=== PATIENT | male | born 1975 | race Two or more races ===

== ENCOUNTER 2019-09-10 10:33 | Emergency (ER) | payer MEDICAID ==
[~2019-09-10] VITALS: Ht 170.2 cm; Wt 75.0 kg
[2019-09-10] MEDS ORDERED: FOLIC ACID 1 MG, THIAMINE HCL 100 MG, MVI, ADULT NO.1 10 ML in DEXTROSE 5% WATER 1,000 ML IV ONE ×4 (11:15)
[2019-09-10 11:57] LABS: BASOPHILS % 1.5 % (0.0-2.0); HEMATOCRIT. 50.3 % (42.0-52.0); HEMOGLOBIN. 17.8 g/dL (14.0-18.0); LYMPHOCYTES % 28.2 % (20.0-50.0); MEAN CORPUSCULAR HEMOGLOBIN 30.9 pg (28.0-32.0); MEAN CORPUSCULAR VOLUME 87.4 fL (80.0-94.0); MEAN PLATELET VOLUME 6.9 fl (7.4-10.4); MONOCYTES % 7.6 % (2.0-8.0); NEUTROPHILS % 61.7 % (40.0-76.0); PLATELET 380 x1000/uL (130-400); RED BLOOD CELL COUNT 5.75 mill/uL (4.7-6.1); RED CELL DISTRIBUTION WIDTH 14.9 % (11.6-14.6)
[2019-09-10 12:05] LABS: CHLORIDE 103 mEq/L (98-107)
[2019-09-10 12:16] LABS: ETHANOL BLOOD 512 mg/dL
[2019-09-10 14:37] LABS: *BENZODIAZEPINES SCREEN URINE NEGATIVE (NEGATIVE); *COCAINE SCREEN URINE NEGATIVE (NEGATIVE); METHADONE URINE SCREEN NEGATIVE (NEGATIVE); OPIATES URINE SCREEN NEGATIVE (NEGATIVE); PHENCYCLIDINE URINE SCREEN NEGATIVE (NEGATIVE)
[2019-09-10 14:38] LABS: *AMPHETAMINES SCREEN URINE PRESUMTIVE POSITIVE (NEGATIVE); *BARBITURATES SCREEN URINE NEGATIVE (NEGATIVE); CANNABINOID URINE SCREEN NEGATIVE (NEGATIVE)
[2019-09-11 05:14] VITALS: BP 109/75
== END 2019-09-11 07:03 | disposition home or self-care (01) ==
LOC: ER 10:33 → EDBD 10:33 → ER 09-11 07:03
DX: F10.229 Alcohol dependence with intoxication, unspecified (principal); F15.10 Other stimulant abuse, uncomplicated; R00.0 Tachycardia, unspecified; Y90.8 Blood alcohol level of 240 mg/100 ml or more
CPT/HCPCS: 36415; 70450; 71045; 80053; 80305; 80320; 85025; 93005; 96365; 99285; J3411; J3490; J7070; G0480

== ENCOUNTER 2021-09-20 10:43 | Emergency (ER) | payer MEDICAID ==
[~2021-09-20] VITALS: Ht 167.6 cm; Wt 68.0 kg
[2021-09-20] MEDS ORDERED: SODIUM CHLORIDE 0.9% 1,000 ML IV ONE ×2 (11:00→13:30)
[2021-09-20 11:54] LABS: CHLORIDE 91 mEq/L (98-107)
[2021-09-20 12:02] LABS: ETHANOL BLOOD < 10 mg/dL
[2021-09-20 12:09] LABS: BASOPHILS % 0.6 % (0.0-2.0); EOSINOPHILS % 0.4 % (0.0-5.0); HEMOGLOBIN. 11.6 g/dL (14.0-18.0); LYMPHOCYTES % 10.7 % (20.0-50.0); MEAN CORPUSCULAR HEMOGLOBIN 32.1 pg (28.0-32.0); MEAN CORPUSCULAR VOLUME 88.7 fL (80.0-94.0); MEAN PLATELET VOLUME 7.9 fl (7.4-10.4); MONOCYTES % 5.3 % (2.0-8.0); PLATELET 268 x1000/uL (130-400); RED CELL DISTRIBUTION WIDTH 13.3 % (11.6-14.6)
[2021-09-20 13:29] VITALS: BP 114/73
[2021-09-20] MEDS ORDERED: ONDANSETRON HCL 4MG/2ML INJ IV ONE (13:30)
[2021-09-20] MEDS ORDERED: ONDA4TAB5 MT (15:04)
== END 2021-09-20 15:32 | disposition home or self-care (01) ==
LOC: ER 10:43
DX: K22.6 Gastro-esophageal laceration-hemorrhage syndrome (principal); R10.84 Generalized abdominal pain; R11.2 Nausea with vomiting, unspecified; G40.909 Epilepsy, unspecified, not intractable, without status epilepticus; F10.21 Alcohol dependence, in remission
CPT/HCPCS: 36415; 74176; 80053; 80320; 84484; 85025; 86850; 86900; 86901; 93005; 96361; 96374; 99284; J2405; J7030; G0480

== ENCOUNTER 2024-07-02 10:41 | Emergency (ER) | payer MEDICAID, OTHER ==
[~2024-07-02] VITALS: Ht 175.3 cm; Wt 78.0 kg
[~2024-07-02 10:41] MED LIST: FOLI-43 MT; ONDA4TAB5 MT; THIA50TA12 MT
[2024-07-02 10:44] VITALS: BP 103/76; PULSE 71; RESP 18; TEMP 36.9; O2SAT 99
== END 2024-07-02 11:17 | disposition home or self-care (01) ==
LOC: ER 10:41
DX: F10.129 Alcohol abuse with intoxication, unspecified (principal); Z79.899 Other long term (current) drug therapy; Y90.9 Presence of alcohol in blood, level not specified
CPT/HCPCS: 82962; 99283

== ENCOUNTER 2024-09-16 14:45 | Emergency (ER) | payer MEDICAID ==
[~2024-09-16] VITALS: Ht 154.9 cm; Wt 55.0 kg
[2024-09-16 14:48] VITALS: O2SAT 98
[2024-09-16 17:41] VITALS: BP 121/74; PULSE 83; RESP 16; TEMP 36.5; O2SAT 100
== END 2024-09-16 17:46 | disposition home or self-care (01) ==
LOC: ER 14:45
DX: S82.492A Other fracture of shaft of left fibula, initial encounter for closed fracture (principal); Z98.890 Other specified postprocedural states; Z86.59 Personal history of other mental and behavioral disorders; V48.2XXA Person on outside of car injured in noncollision transport accident in nontraffic accident, initial encounter; Y93.89 Activity, other specified; Y92.512 Supermarket, store or market as the place of occurrence of the external cause; Y99.8 Other external cause status
CPT/HCPCS: 29505; 73562; 73590; 73610; 99284

== ENCOUNTER 2024-09-26 19:52 | Emergency (ER) | payer MEDICAID ==
[~2024-09-26] VITALS: Ht 172.7 cm; Wt 78.0 kg
[2024-09-26 19:56] VITALS: BP 136/80; PULSE 92; RESP 16; TEMP 36.8; O2SAT 98
[2024-09-26] MEDS: LIDOCAINE HCL/PF 1% 10 MG/ML 5ML VIAL INFIL ONE (22:00)
[2024-09-26] MEDS: BACITRACIN ZINC OINT UDPKT TOP ONE (22:00)
[2024-09-26] MEDS ORDERED: NAPR-1176 MT (23:15)
[2024-09-26] MEDS: TETANUS, DIPHTHERIA, PERTUSSIS VAC/PF 0.5ML (>10YR OLD) IM ONE (23:43)
== END 2024-09-27 01:25 | disposition home or self-care (01) ==
LOC: ER 19:52
DX: S81.812A Laceration without foreign body, left lower leg, initial encounter (principal); Z79.1 Long term (current) use of non-steroidal anti-inflammatories (NSAID); Z79.899 Other long term (current) drug therapy; Z98.890 Other specified postprocedural states; W26.0XXA Contact with knife, initial encounter; Y93.89 Activity, other specified; Y92.89 Other specified places as the place of occurrence of the external cause; Y99.8 Other external cause status
CPT/HCPCS: 12001; 90471; 90715; 99283